=== PATIENT | female | born 1940 | race Caucasian/White ===

== ENCOUNTER 2018-05-21 13:38 | Inpatient (IN) ==
--- NOTE | 2018-05-20 21:11 | Discharge Summary ---
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 Diabetes mellitus complication status: with unspecified complications Qualified Code(s): E11.8 - Type 2 diabetes mellitus with unspecified complications (4) HLD (hyperlipidemia) Priority: Secondary Status: Chronic Qualifiers: Hyperlipidemia type: mixed hyperlipidemia Qualified Code(s): E78.2 - Mixed hyperlipidemia (5) HTN (hypertension) Priority: Secondary Status: Chronic Qualifiers: Hypertension type: essential hypertension Qualified Code(s): I10 - Essential (primary) hypertension (6) History of TIA (transient ischemic attack) Priority: Secondary Status: Chronic - Hospital Course Hospital course: Ms. Stevens is a 78 year old female - Time Spent with Patient Total time spent providing and/or coordinating discharge services: - Discharge Medications Home Medications: Gabapentin [Neurontin] 300 mg PO QAM 01/14/18 [History] Aspirin Enteric Coated [Aspirin EC] 325 mg PO BID #20 tablet. 05/20/18 [Rx] OxyCODONE Immed Rel [Roxicodone 5 MG] 5 mg PO Q6HR PRN 7 Days #28 tablet [Rx] Aspirin Enteric Coated [Aspirin EC] 325 mg PO DAILY 05/21/18 [History] Atorvastatin [Lipitor] 40 mg PO HS 05/21/18 [History] Cholecalciferol (D-3) [Vitamin D] 2,000 unit PO DAILY 05/21/18 [History] Donepezil [Aricept] 10 mg PO HS 05/21/18 [History] Gabapentin [Neurontin] 600 mg PO HS 05/21/18 [History] Lisinopril [Zestril] 20 mg PO DAILY 05/21/18 [History] Metformin HCl [Metformin HCl ER] 1,000 mg PO BID 05/21/18 [History] Montelukast [Singulair] 10 mg PO DAILY 05/21/18 [History] Omeprazole [PriLOSEC] 40 mg PO DAILY 05/21/18 [History] Prevagen 1 tab PO DAILY 05/21/18 [History] Allergies/Adverse Reactions: 3 Allergy/AdvReac Type Severity Reaction Status Date / Time etodolac Allergy See Verified 05/21/18 15:29 Comments Primary care physician: Mumtaz Wong MD Labs on day of discharge: Labs from last 24 hours 05/21/18 13:53 POC Glucose 119 H - Patient Status Disposition: Home Health Service Condition: Good - Discharge Instructions Follow Up With: Mumtaz Wong MD [Primary Care Provider] - Additional Instructions: Discharge Instructions: Total Hip Replacement Please call [facility] ([phone]), your Primary Care Physician, or report to the Emergency Room if you have any of the following symptoms: Nausea, vomiting, fever greater that 101.5, swelling, chest pain, shortness of breath, increased pain/redness/drainage/odor for your incision site, numbness/ tingling, or any other concerning symptoms. ACTIVITY:Weight-bearing as tolerated for 8 weeks with hip dislocation precautions that physical therapy taught you. You may progress as tolerated under the guidance of your physical therapist. You do not need to sleep with a pillow between your legs. You can also seep on the operative side or on your stomach. Incentive Spirometer 10 times an hour. MEDICATIONS: Upon discharge resume your home medications. Take all the medications as prescribed. Take a stool softener if taking narcotic pain medications. Stool softeners are only effective if you drink enough fluids. Drink 6-8 glass of water or fluids a day, unless this is not allowed for another health problem. Despite using stool softeners, if you haven't had a bowel movement in 3 days, please switch to a gentle laxative. Gentle laxatives are sold over the counter. You should have a bowel movement within 24 hours, if not call the office. You will be discharged from the hospital with a prescription for pain medication. You are encouraged to decrease the use of narcotic pain medication as tolerated. Should you require a refill, please call the office. [facility] prescribes narcotic pain medication for only 4-6 weeks after surgery. If you require pain medication beyond this time period, you may be referred to your Primary Care Physician or to the Pain Clinic for further evaluation. Plan ahead for refills on pain medication as many narcotics either need to be picked up at the office or mailed. It is best to call 48-72 hours in advance of needing a prescription refill so you don't run out of medication. To help control the post-operative pain, you may take NSAIDs (Aleve,Advil, Motrin, ibuprofen, naprosyn) or Tylenol as prescribed on the bottle in addition to the pain medication. ANTICOAGULATION (blood thinners): Continue your Aspirin, Lovenox or Coumadin as prescribed to help prevent a blood clot in the leg or in the lungs. As long as your incision remains dry and you tolerate the NSAIDs (Aleve, Advil, Motrin, Ibuprofen, Naprosyn), it is OK to use the NSAIDS while you are taking your anticoagulation medication. Should your incision start to drain, stop the NSAID and contact our office. Common symptoms of blood clot in the legs include: localized pain, swelling, calf tenderness, redness or discoloration of the skin. Blood clot in the lung symptoms include: shortness of breath, rapid pulse, sweating, and chest pain that worsens with deep breathing, coughing up blood, lightheadedness, feelings of anxiety. If you experience any of these symptoms notify your physician immediately, go to the emergency room, or if having trouble breathing, call 911. WOUND CARE: Leave the dressing on for 7 to 10days. You may change the dressing if it is saturated greater than 50%. Do not get the dressing wet at anytime. Wash your hands with antibacterial soap, rinse and dry prior to any wound care. If you have jorge a the visiting nurse or rehab facility can remove the stapes 10-14 days after surgery and place steri-strips across the wound. Leave the steri-strips in place until they fall off on their own. You may let water from the shower run on top of the steri-strips. If you do not have a visiting nurse or rehab facility, you will need to return to the office at 10-14 days for the jorge a to be removed. If you have itching or redness around the dressing call the office. FOLLOW-UP: Please follow up with your surgeon in the orthopedic clinic in 6 weeks from the day of surgery. If you have jorge a that need to be removed, you will need to come back to the office in 10-14 days from the day of surgery. <Siria Keating - Last Filed: 05/23/18 15:41> - NOTES TO OUTPATIENT PROVIDER Notes to Outpatient Provider: PCP follow up: Acute blood loss anemia Date of Encounter: 05/23/18 Time of Encounter: 15:36 - Discharge Diagnosis (1) Status post total hip replacement, right Priority: Primary Status: Acute Comments: Opsite dressing, leave intact until first post-operative visit. If dressing becomes >50% saturated, contact office, remove dressing and place appropriate dressing in its place. Do not allow for dressing to get wet. Zipline/[place] in place, plan to remove at post-operative day #14-16. Total Joint Precautions x 6 weeks Apply cold therapy wrap 3-6x/day for 20 minutes at a time. Encourage ambulation throughout the day Use Incentive spirometer 10x/hour. Elevate affected extremity above heart as tolerated. Brace: Wear hip abductor brace at night x 6 weeks. (2) Arthritis of right hip Priority: Primary Status: Chronic (3) HTN (hypertension) Priority: Secondary Status: Chronic Qualifiers: Hypertension type: essential hypertension Qualified Code(s): I10 - Essential (primary) hypertension (4) HLD (hyperlipidemia) Priority: Secondary Status: Chronic Qualifiers: Hyperlipidemia type: mixed hyperlipidemia Qualified Code(s): E78.2 - Mixed hyperlipidemia (5) DMII (diabetes mellitus, type 2) Priority: Secondary Status: Chronic Qualifiers: Diabetes mellitus retirement insulin use: unspecified retirement insulin use status Diabetes mellitus complication status: with unspecified complications Qualified Code(s): E11.8 - Type 2 diabetes mellitus with unspecified complications (6) History of TIA (transient ischemic attack) Priority: Secondary Status: Chronic (7) Acute blood loss anemia Priority: Secondary Status: Acute Comments: Asympto. - Hospital Course Hospital course: Ms. Stevens is a 78 year old female, status post - Right THR 05/21. Patient had uneventful postoperative course, acute blood loss anemia - asympto. Stable for discharge. Patient seen at bedside, without complaints. A&O x 3 Afebrile, vital signs stable. Ester voided prior to discharge according to her nurse Ling. Vital Signs Temp Pulse Resp BP Pulse Ox 05/23/18 06:32 98.4 F 93 16 119/56 96 05/23/18 03:22 98.2 F 89 17 117/59 95 05/22/18 23:31 98.3 F 95 17 124/64 94 05/22/18 18:42 98.2 F 96 16 121/68 97 Intake and Output 05/22/18 05/23/18 05/23/18 23:59 07:59 15:59 Intake Total 100 / 100 Output Total 600 / 600 Balance -500 / -500 Intake: Oral 100 / 100 Output: Urine 600 / 600 Other: # Voids 1 1 Weight 79.9 kg Blood Glucose* 202 164 159 Patient Weight 05/23/18 23:59 Weight 79.9 kg Labs reviewed. H/H - stable, asymptomatic Abnormal Labs, Last 24 hours 05/23/18 05/23/18 05/23/18 11:31 07:42 01:30 Hgb Hct Sodium 134 L BUN 25 H Est GFR (Non-Af Amer) 54 L Glucose 203 H POC Glucose 159 H 164 H Calcium 8.3 L 05/23/18 05/22/18 05/22/18 01:30 19:56 16:18 Hgb 8.6 L D Hct 27.1 L Sodium BUN Est GFR (Non-Af Amer) Glucose POC Glucose 202 H 216 H Calcium 05/22/18 05/22/18 12:05 07:53 Hgb Hct Sodium BUN Est GFR (Non-Af Amer) Glucose POC Glucose 202 H 255 H Calcium Pain control: adequate Participating in PT. All questions and concerns addressed. Educated on use of incentive spirometer. Encouraged ambulation and proper hydration. Patient educated on post-operative restrictions and post-operative care. Assessment and plan: Continue with postoperative care Discharge plan: Home with , discharge today. She will follow up in [place] with and aakash education printed and given to patient. - Time Spent with Patient Total time spent providing and/or coordinating discharge services: Date of admission: 05/21 Primary care physician: Mumtaz Wong MD Discharging clinician: Siria Keating Anticipated date of discharge: 05/23/18 - Patient Status Functional capacity at discharge: uses cane/walker Overall status at discharge: patient is progressing back to baseline - Diet and Activity Activity: as per physical therapy
--- NOTE | 2018-05-20 22:07 | Physician Discharge Referral ---
<Saúl Carlton - Last Filed: 05/21/18 15:16> - Respiratory Orders Smoking Cessation: Smoking cessation has been advised. For more information, call the [place] Tobacco Quit Line at 7-383-GZEF-NOW. - Transfer Medications Home Medications: Gabapentin [Neurontin] 300 mg PO QAM 01/14/18 [History] Aspirin Enteric Coated [Aspirin EC] 325 mg PO BID #20 tablet. 05/20/18 [Rx] OxyCODONE Immed Rel [Roxicodone 5 MG] 5 mg PO Q6HR PRN 7 Days #28 tablet [Rx] Aspirin Enteric Coated [Aspirin EC] 325 mg PO DAILY 05/21/18 [History] Atorvastatin [Lipitor] 40 mg PO HS 05/21/18 [History] Cholecalciferol (D-3) [Vitamin D] 2,000 unit PO DAILY 05/21/18 [History] Donepezil [Aricept] 10 mg PO HS 05/21/18 [History] Gabapentin [Neurontin] 600 mg PO HS 05/21/18 [History] Lisinopril [Zestril] 20 mg PO DAILY 05/21/18 [History] Metformin HCl [Metformin HCl ER] 1,000 mg PO BID 05/21/18 [History] Montelukast [Singulair] 10 mg PO DAILY 05/21/18 [History] Omeprazole [PriLOSEC] 40 mg PO DAILY 05/21/18 [History] Prevagen 1 tab PO DAILY 05/21/18 [History] Allergies/Adverse Reactions: 3 Allergy/AdvReac Type Severity Reaction Status Date / Time etodolac Allergy See Verified 05/21/18 15:29 Comments Certification: Further, I certify that my clinical findings support that this patient is homebound (i.e. absences from home require considerable and taxing effort and are for medical reasons or jainism services or infrequently or short duration when for other reasons) because: Attestation: My signature below is to certify that this patient is under my care and that I, or nurse practitioner, or a physician's assistant vice president working with me, has a face-to -face encounter with this patient. <Siria Keating - Last Filed: 05/23/18 15:43> Home Health/Hosp Referral Info Transfer to: Home Health Provider in Charge Post Discharge: PCP - Diagnosis (1) Status post total hip replacement, right Priority: Primary Status: Acute (2) Arthritis of right hip Priority: Primary Status: Chronic (3) HTN (hypertension) Status: Chronic (4) HLD (hyperlipidemia) Status: Chronic (5) DMII (diabetes mellitus, type 2) Status: Chronic (6) History of TIA (transient ischemic attack) Status: Chronic - Respiratory Orders None Smoking Cessation: Smoking cessation has been advised. For more information, call the [place] Tobacco Quit Line at 9-826-MEGB-NOW. - Diet/Nutrition Diet/Nutrition Orders: Regular - Activity Activity Orders: Up ad juan, Ambulate, Walker - Services Needed Following services are medically necessary services: Nursing, Home Health Aide, Physical Therapy, Occupational Therapy Home Care Orders: Opsite dressing, leave intact until first post-operative visit. If dressing becomes >50% saturated, contact office, remove dressing and place appropriate dressing in its place. Do not allow for dressing to get wet. Zipline/[place] in place, plan to remove at post-operative day #14-16. Total Joint Precautions x 6 weeks Apply cold therapy wrap 3-6x/day for 20 minutes at a time. Encourage ambulation throughout the day Use Incentive spirometer 10x/hour. Elevate affected extremity above heart as tolerated. Brace: Wear hip abductor brace at night x 6 weeks. Other Treatments: Repeat H/H this week for blood loss anemia. Fax results to [facility]. Certification: Further, I certify that my clinical findings support that this patient is homebound (i.e. absences from home require considerable and taxing effort and are for medical reasons or jainism services or infrequently or short duration when for other reasons) because: Homebound Reason: Post-surgery restriction and or conditions limit ability to leave home Attestation: My signature below is to certify that this patient is under my care and that I, or nurse practitioner, or a physician's assistant vice president working with me, has a face-to -face encounter with this patient.
[2018-05-21] MEDS ORDERED: Ringers Solution, Lactated 1,000 ML IVC SCH ×2 (14:00→19:05)
[2018-05-21] MEDS ORDERED: CeFAZolin Syr 2,000MG/20 ML 2,000 MG/20 ML SYRINGE IVPB ONE (14:00)
[2018-05-21] MEDS ORDERED: Famotidine 20 MG/2 ML VIAL IVP ONE (14:48)
[2018-05-21] MEDS ORDERED: Acetaminophen IV 1,000 MG/100 ML INFUS..BTL IVPB ONE (14:49)
--- NOTE | 2018-05-21 14:51 | Anesthesia Evaluation PreOp ---
Date of Encounter: 05/21/18 Time of Encounter: 14:50 - Past History Planned Operation: Rt THR Cardiac History: HTN, Hyperlipidemia Pulmonary History: Denies Any Significant HX TRACTOR EXPERT History: TIA Other Medical History: Diabetes Type II Anesthesia History: No Prior Anesthetic Complications Alcohol Use: none Drug use: none Medications and Allergies Donepezil 01/14/18 [History] Ergocalciferol (VITAMIN D2) 01/14/18 [History] Gabapentin [Neurontin] 01/14/18 [History] Hydrochlorothiazide 01/14/18 [History] Lisinopril 01/14/18 [History] Prilosec 01/14/18 [History] metFORMIN 01/14/18 [History] Aspirin Enteric Coated [Aspirin EC] 325 mg PO BID #20 tablet. 05/20/18 [Rx] OxyCODONE Immed Rel [Roxicodone 5 MG] 5 mg PO Q6HR PRN 7 Days #28 tablet [Rx] 3 Allergy/AdvReac Type Severity Reaction Status Date / Time etodolac Allergy See Verified 01/14/18 13:20 Comments - Meds/Allergy Pre-op Review Medications Reviewed: Yes Allergies Reviewed: Yes Beta Blockers on Current Med List: No Anesthesia Results - Labs Laboratory Tests 05/16/18 05/16/18 14:04 14:04 Hgb 12.3 Hct 38.1 Plt Count 304 Sodium 133 L Potassium 4.4 BUN 12 Creatinine 0.86 - Imaging EKG: report reviewed (SR poss Atrial Enlargement) Anesthesia Exam O2 Sat Height 1.7 m Height 1.7 m Weight 79.379 kg Weight 79.379 kg O2 Sat by Pulse Oximetry 98 Vital Signs Temp Pulse Resp BP Pulse Ox 98.2 F 99 18 199/94 98 05/21/18 13:58 05/21/18 13:58 05/21/18 13:58 05/21/18 13:58 05/21/18 13:58 Height: 5'7 Weight: 175 lbs NPO (# of Hours): MN Pain Scale: 0 - HEENT Pupil (Motor): Pupils equal, EOMI Mallampati: III Denture Type: Upper: Complete Oral Opening: Less than or equal to 3 - TRACTOR EXPERT LOC: Oriented TRACTOR EXPERT Motor: Normal RUE, Normal LUE, Normal RLE, Normal LLE, Normal Face TRACTOR EXPERT Sensory: Normal: RUE, LUE, RLE, LLE, Face - Cardiac Rhythm: Regular Murmur: None JVD: No Carotid Bruit: No - Pulmonary Breath Sounds: bilateral Clear Respiratory Effort: Symmetrical Anesthesia Assess/Plan ASA Score: 3 (HTN DM TIA) Modified [place] Scale for Level of Consciousness: Cooperative, oriented, and tranquil Anesthetic Plan: General, Regional Monitoring Plan: Standard Monitors Recovery Plan: PACU (Discussed GA, possible Fascia Iliaca Block, agrees to proceed)
[2018-05-21] MEDS ORDERED: *HR* Succinylcholine 200 MG/10 ML VIAL IVP ONE (14:53)
[2018-05-21] MEDS ORDERED: *HR* FentaNYL (PF) 100 MCG/2 ML VIAL ONE ×3 (14:53→17:09)
[2018-05-21] MEDS ORDERED: Ondansetron 4 MG/2 ML VIAL ONE (14:53)
[2018-05-21] MEDS ORDERED: *HR* Propofol 200 MG/20 ML VIAL IVP ONE (14:53)
[2018-05-21] MEDS ORDERED: *HR* Midazolam HCl 2 MG/2 ML VIAL ONE (14:53)
[2018-05-21] MEDS ORDERED: Dexamethasone 4 MG/ML VIAL ONE (14:53)
[2018-05-21] MEDS ORDERED: Lidocaine -MPF 2% 2 ML VIAL ONE (14:54)
[2018-05-21] MEDS ORDERED: Lidocaine -MPF 4% 5 ML AMPUL ONE (14:56)
--- NOTE | 2018-05-21 15:16 | History & Physical Report ---
Date of Encounter: 05/21/18 Time of Encounter: 15:16 24 Hour HP Update - Instructions Instructions: If the History and Physical is less than 30 days old and was completed prior to A.M. admission and or procedure and has NOT been updated on calendar day of procedure please complete this update prior to performing procedure. - Update Patient reports changes in Medical Condition: No Changes in examination, assessment, or condition: No Changes in Medication: No Preop tests/diagnostics Reviewed: Yes Surgery Remains Indicated: Yes Consent for Planned Operative Procedure(s) Verified: Yes - Pre-Operative Checklist Preoperative Checklist Indicated: No Prophylactic Antibiotic Ordered: Yes Is VTE Prophylaxis Indicated?: Yes
--- NOTE | 2018-05-21 17:11 | Orthopedic Operative Note ---
Date of procedure: 05/21/18 Pre-op diagnosis: Right hip arthritis Post-op diagnosis: same Procedure: Procedure: Right Total Hip Replacment robotic-assisted Estimated blood loss: 200 cc Hardware: Metal and polyethylene replacement. [place] DM Cup: 52 cup Femoral size 8 stem Head: 4head with Renee Procedural Notes: Grade 4 arthritic changes femoral head acetabular socket, procedure performed with robotic assistance. Operative leg 5 mm short as compared to nonoperative leg based on preoperative CT Operative procedure: The patient was brought to the operating room and placed on the operating room table. After general anesthesia was administered the patient was placed in the lateral decubitus position with the operative leg up. All pressure points were padded appropriately and the head was stabilized in the neutral position. The operative extremity was prepped and draped in the sterile surgical fashion patient received IV antibiotic prior to skin incision. 3 Steinmann pins were placed in the iliac crest 3 cm proximal to the anterior superior iliac spine this was for the robotic-assisted sensor. This was done through a small 2 cm incision. A standard posterior approach is made to the operative hip, the incision was made through the skin and subcutaneous tissue hemostasis was obtained with Bovie cautery. Using careful sharp dissection the fascia was identified and incised exposing the external rotators. The greater trochanter was marked, and length was measured at this time utilizing robotic assistance. The external rotators were released off the greater trochanter and tagged with # 2 FiberWire suture. The capsule was T'd open and the hip was brought into internal rotation. Patient noted to have grade 4 arthritic changes femoral head. The femoral neck cut was made at the appropriate level roughly 15 mm proximal to the lesser trochanter aced on preoperative templating. An anterior capsulotomy was performed for the anterior retractor. Soft tissues removed from the acetabulum. Patient noted to have grade 4 arthritic changes acetabulum. The acetabulum reference point was confirmed. The acetabulum was then mapped with robotic assistance. Based on the preoperative plan the acetabulum was reamed in one step with a 51 reamer. The 52 acetabulum was impacted with robotic assistance and 39 degrees of abduction and 26 degrees of anteversion. The hip was brought back in to internal rotation and prepared with the box office clerk followed by the canal finder followed by the reaming process to a size 7/ 8 broaching process in 20 degrees anteversion. It was broached up to the appropriate size 8 Trial reduction revealed leg lengths close to normal. The femoral implant was impacted in place in 20 degrees of anteversion. Trial reduction found the hip to be stable with 4 head and Renee. The trials were removed and the real implants were impacted in place. The hip was reduced, patient had robotic confirmed leg length of 3 mm longer than the contralateral side. The hip had excellent stability with forward flexion to 90 degrees adduction of 30 degrees and internal rotation of 60 degrees. The hip had no shuck. The hip sat with an antibacterial solution. It was irrigated out with 2 L of pulse irrigation. The Steinmann pins were removed. The hip was closed by the PA. The deep tissue was irrigated and closed deep with #1 PDS suture superficially with 0 PDS suture and skin was closed with Dermabond and zip tie. The patient was placed in a sterile dressing and abduction pillow. The patient was extubated and transferred to the recovery room in stable condition. Anesthesia: GETA Surgeon: Saúl Carlton Was there an executive administrative assistant present: No Estimated blood loss (cc): 200 Condition: stable Disposition: PACU
[2018-05-21] MEDS ORDERED: Ethanol\\Acetic Acid\\Na Ace\\Ben 1,000 ML IRRIG.SOLN IR ONE (17:32)
[2018-05-21] MEDS: *HR* Labetalol 20 MG/4 ML SYRINGE IVP PRN ×2 (17:50→18:33)
[2018-05-21] MEDS: *HR* HYDROmorphone (PF) 1 MG/ML SYRINGE IVP PRN ×8 (17:58→18:33)
[2018-05-21] MEDS ORDERED: *HR* Enoxaparin 30 MG/0.3 ML SYRINGE SQ SCH (18:00)
--- NOTE | 2018-05-21 18:51 | Anesthesia Evaluation Post Op ---
Date of Encounter: 05/21/18 Time of Encounter: 18:49 - Vital Signs Vital Signs: Vital Signs/O2 Sat, Most Current Temp Pulse Resp BP Pulse Ox 98.6 F 76 16 151/84 96 05/21/18 18:43 05/21/18 18:43 05/21/18 18:43 05/21/18 18:43 05/21/18 18:43 - Lungs Lungs: Clear Ascult./Percussion - Airway Airway: Non-obstructed - Cardiovascular Regular Rate - Mental Status Mental Status: Asleep with brisk response to light stimulation - Pain Pain Scale used: Unable to assess (patient asleep but complains of pain when awake, then goes back to sleep) - Nausea Vomiting Nausea Vomiting: Not Present - Hydration Hydration: NPO, Has not voided - Discharge PostOp Status: Transfer Patient to floor
[2018-05-21] MEDS ORDERED: Temazepam 15 MG CAPSULE PO PRN (19:05)
[2018-05-21] MEDS ORDERED: Naloxone 0.4 MG/ML INJ IVP PRN (19:05)
[2018-05-21] MEDS ORDERED: *HR* OxyCODONE Immed Rel 5 MG TABLET PO PRN (19:05)
[2018-05-21] MEDS ORDERED: traMADol 50 MG TABLET PO PRN (19:05)
[2018-05-21] MEDS ORDERED: Sennosides 8.6 MG TABLET PO PRN (19:05)
[2018-05-21] MEDS ORDERED: MOM Conc 10 ML UD.LIQ PO PRN (19:05)
[2018-05-21] MEDS: Ascorbic Acid 500 MG TABLET PO SCH (21:00)
[2018-05-21] MEDS: Ondansetron 4 MG/2 ML VIAL IVP PRN (21:00)
[2018-05-21] MEDS: *HR* OxyCODONE/APAP 5/325 TABLET PO PRN (22:43)
[2018-05-22 01:54] LABS: Hematocrit 33.8 % (35.3-44.9)
[2018-05-22 02:14] LABS: BUN/Creatinine Ratio 16 (6-26); Blood Urea Nitrogen 14 mg/dL (8-23); Calcium 8.9 mg/dL (8.6-10.3); Carbon Dioxide 24 mEq/L (23-29); Chloride 101 mEq/L (98-107); Glucose 259 mg/dL (70-105); Osmolality,Calculated 291 (280-300); Potassium 4.4 mEq/L (3.5-5.1); Sodium 136 mEq/L (136-145); eGFR For Non-African Americans > 60 (> 60)
[2018-05-22] MEDS: Ondansetron 4 MG/2 ML VIAL IVP PRN (04:38)
[2018-05-22] MEDS: *HR* Enoxaparin 30 MG/0.3 ML SYRINGE SQ SCH ×2 (04:49→18:23)
[2018-05-22] MEDS ORDERED: Dextrose Gel 15 GM/37.5 ML TUBE PO PRN ×2 (06:38)
[2018-05-22] MEDS ORDERED: *HR* Dextrose 50 % in Water (Syg) 50 ML SYRINGE IVP PRN (06:38)
[2018-05-22] MEDS ORDERED: D5% in Water 1,000 ML IVC PRN (06:38)
--- NOTE | 2018-05-22 06:39 | Orthopedics Progress Note ---
Date of Encounter: 05/22/18 Time of Encounter: 06:38 - Assessment and Plan (1) Arthritis of right hip Current Visit: No Status: Chronic (2) Status post total hip replacement, right Current Visit: No Status: Acute (3) DMII (diabetes mellitus, type 2) Current Visit: No Status: Chronic Qualifiers: Diabetes mellitus prison insulin use: unspecified roasterman insulin use status Diabetes mellitus complication status: with unspecified complications Qualified Code(s): E11.8 - Type 2 diabetes mellitus with unspecified complications (4) HLD (hyperlipidemia) Current Visit: No Status: Chronic Qualifiers: Hyperlipidemia type: mixed hyperlipidemia Qualified Code(s): E78.2 - Mixed hyperlipidemia (5) HTN (hypertension) Current Visit: No Status: Chronic Qualifiers: Hypertension type: essential hypertension Qualified Code(s): I10 - Essential (primary) hypertension (6) History of TIA (transient ischemic attack) Current Visit: No Status: Chronic Subjective Interval history: Patient was seen this morning doing well without complaints. Afebrile vital signs stable. Operative extremity: Neurovascularly intact Dressing clean dry and intact Calves nontender Assessment and plan: Continue with postoperative care Hematocrit 33 Objective Vital signs: Vital Signs Temp Pulse Resp BP Pulse Ox 05/22/18 04:12 98.5 F 71 14 137/68 96 05/21/18 23:44 97.7 F 85 14 161/71 93 05/21/18 21:05 98.4 F 76 16 127/88 96 05/21/18 20:05 98.3 F 86 14 157/84 98 05/21/18 19:35 97.9 F 81 16 166/67 98 05/21/18 19:05 98.2 F 70 16 157/76 98 05/21/18 18:43 98.6 F 76 16 151/84 96 05/21/18 18:33 83 16 173/81 97 05/21/18 18:23 86 16 159/75 99 05/21/18 18:13 98.2 F 87 16 165/85 100 05/21/18 18:03 80 16 122/88 100 05/21/18 17:53 76 16 159/80 100 05/21/18 17:43 98.4 F 88 16 202/108 100 05/21/18 15:48 92 18 200/95 95 05/21/18 13:58 98.2 F 99 18 199/94 98 Intake and Output 05/21/18 05/21/18 05/22/18 15:59 23:59 07:59 Intake Total 0 / 0 0 / 0 Output Total 550 / 550 100 / 100 Balance -550 / -550 -100 / -100 Intake: Oral 0 / 0 0 / 0 Output: Urine 300 / 300 100 / 100 Estimated Blood Loss 200 / 200 Gastric Drainage 50 / 50 Other: Weight 79.379 kg 79.8 kg Blood Glucose* 119 218 Patient Weight 05/22/18 23:59 Weight 79.8 kg - Labs CBC & BMP: 05/22/18 00:56 05/22/18 00:56 Labs: Abnormal lab results Hgb 11.0 g/dL (11.5-15.4) L D 05/22/18 00:56 Hct 33.8 % (35.3-44.9) L 05/22/18 00:56 Glucose 259 mg/dL (70-105) H 05/22/18 00:56 POC Glucose 119 mg/dL (70-99) H 05/21/18 13:53 Consult Discharge Plan - Plan Referrals: Mumtaz Wong MD [Primary Care Provider] -
[2018-05-22] MEDS: Insulin LISPRO 300 UNITS/3 ML VIAL SQ SCH ×3 (08:39→18:19)
[2018-05-22] MEDS: Ascorbic Acid 500 MG TABLET PO SCH ×2 (08:39→18:22)
[2018-05-22] MEDS: Multivit/Ca/Min/Fe/FA 1 TAB TABLET PO SCH (08:39)
[2018-05-22] MEDS: *HR* Metformin 500 MG TABLET PO SCH ×2 (11:16→18:22)
[2018-05-22] MEDS: Gabapentin 300 MG CAPSULE PO SCH (11:17)
[2018-05-22] MEDS: Cholecalciferol (D-3) 1,000 UNIT TABLET PO SCH (11:17)
[2018-05-22] MEDS: Lisinopril 20 MG TABLET PO SCH (11:21)
[2018-05-22] MEDS: (Prevagen 1 TAB) PO SCH (11:21)
--- NOTE | 2018-05-22 16:26 | Event Note ---
Date of Encounter: 05/22/18 Time of Encounter: 16:24 PCR - POD#1 - Right THR 05/21 Patient seen at bedside, without complaints. A&O x 3 Afebrile, vital signs stable. Labs reviewed. H/H - stable, asymptomatic Pain control: adequate Participating in PT. All questions and concerns addressed. Educated on use of incentive spirometer. Encouraged ambulation and proper hydration. Patient educated on post-operative restrictions and post-operative care. Assessment and plan: Continue with postoperative care Discharge plan: Home in AM, with HH. Short CBC 05/22/18 05/21/18 Range/Units 00:56 18:09 Hgb 11.0 L D 13.0 (11.5-15.4) g/dL Hct 33.8 L 40.0 (35.3-44.9) % BMP 05/22/18 Range/Units 00:56 Sodium 136 (136-145) mEq/L Potassium 4.4 (3.5-5.1) mEq/L Chloride 101 (98-107) mEq/L Carbon Dioxide 24 (23-29) mEq/L BUN 14 (8-23) mg/dL Creatinine 0.88 (0.60-1.20) mg/dL Glucose 259 H (70-105) mg/dL Calcium 8.9 (8.6-10.3) mg/dL Vital Signs Temp Pulse Resp BP Pulse Ox 05/22/18 14:08 97.8 F 87 16 158/79 96 05/22/18 11:11 98.1 F 82 16 164/73 98 05/22/18 06:50 98.7 F 68 16 134/67 97 05/22/18 04:12 98.5 F 71 14 137/68 96 05/21/18 23:44 97.7 F 85 14 161/71 93 05/21/18 21:05 98.4 F 76 16 127/88 96 05/21/18 20:05 98.3 F 86 14 157/84 98 05/21/18 19:35 97.9 F 81 16 166/67 98 05/21/18 19:05 98.2 F 70 16 157/76 98 05/21/18 18:43 98.6 F 76 16 151/84 96 05/21/18 18:33 83 16 173/81 97 05/21/18 18:23 86 16 159/75 99 10/08/18 18:13 98.2 F 87 16 165/85 100 05/21/18 18:03 80 16 122/88 100 05/21/18 17:53 76 16 159/80 100 05/21/18 17:43 98.4 F 88 16 202/108 100 Intake and Output 05/22/18 05/22/18 05/22/18 07:59 15:59 23:59 Intake Total 100 / 100 480 / 480 Output Total 100 / 100 300 / 300 Balance 0 / 0 180 / 180 Intake: IV Fluids 100 / 100 Ancef 2,000 MG In 0.9 % Sodium 100 / 100 Chloride 100 ML @ 200 mls/hr IVPB Q8HR [facility] Rx#:[id number] Oral 0 / 0 480 / 480 Output: Urine 100 / 100 300 / 300 Other: Meal Lunch Percent of Meal Consumed 95% Weight 79.8 kg Blood Glucose* 255 202 216 Patient Weight 05/22/18 23:59 Weight 79.8 kg
[2018-05-22] MEDS ORDERED: Gabapentin 300 MG CAPSULE PO SCH (21:00)
[2018-05-22] MEDS ORDERED: Insulin LISPRO 300 UNITS/3 ML VIAL SQ SCH (21:00)
[2018-05-23 02:22] LABS: Hematocrit 27.1 % (35.3-44.9)
[2018-05-23 02:30] LABS: Hemoglobin 8.6 g/dL (11.5-15.4)
[2018-05-23 02:46] LABS: BUN/Creatinine Ratio 25 (6-26); Blood Urea Nitrogen 25 mg/dL (8-23); Calcium 8.3 mg/dL (8.6-10.3); Carbon Dioxide 23 mEq/L (23-29); Chloride 101 mEq/L (98-107); Glucose 203 mg/dL (70-105); Osmolality,Calculated 288 (280-300); Potassium 3.9 mEq/L (3.5-5.1); Sodium 134 mEq/L (136-145); eGFR For Non-African Americans 54 (> 60)
[2018-05-23] MEDS: *HR* Enoxaparin 30 MG/0.3 ML SYRINGE SQ SCH (05:12)
--- NOTE | 2018-05-23 06:55 | Orthopedics Progress Note ---
Date of Encounter: 05/23/18 Time of Encounter: 06:54 - Assessment and Plan (1) Arthritis of right hip Current Visit: No Status: Chronic (2) Status post total hip replacement, right Current Visit: No Status: Acute (3) DMII (diabetes mellitus, type 2) Current Visit: No Status: Chronic Qualifiers: Diabetes mellitus half-way insulin use: unspecified joint terminal attack controller insulin use status Diabetes mellitus complication status: with unspecified complications Qualified Code(s): E11.8 - Type 2 diabetes mellitus with unspecified complications (4) HLD (hyperlipidemia) Current Visit: No Status: Chronic Qualifiers: Hyperlipidemia type: mixed hyperlipidemia Qualified Code(s): E78.2 - Mixed hyperlipidemia (5) HTN (hypertension) Current Visit: No Status: Chronic Qualifiers: Hypertension type: essential hypertension Qualified Code(s): I10 - Essential (primary) hypertension (6) History of TIA (transient ischemic attack) Current Visit: No Status: Chronic (7) Acute blood loss anemia Current Visit: Yes Status: Acute Subjective Interval history: Patient was seen this morning doing well without complaints. Afebrile vital signs stable. Operative extremity: Neurovascularly intact Dressing clean dry and intact Calves nontender Assessment and plan: Continue with postoperative care Hematocrit 27 Objective Vital signs: Vital Signs Temp Pulse Resp BP Pulse Ox 05/23/18 03:22 98.2 F 89 17 117/59 95 05/22/18 23:31 98.3 F 95 17 124/64 94 05/22/18 18:42 98.2 F 96 16 121/68 97 05/22/18 14:08 97.8 F 87 16 158/79 96 05/22/18 11:11 98.1 F 82 16 164/73 98 Intake and Output 05/22/18 05/22/18 05/23/18 15:59 23:59 07:59 Intake Total 480 / 480 100 / 100 Output Total 300 / 300 600 / 600 Balance 180 / 180 -500 / -500 Intake: Oral 480 / 480 100 / 100 Output: Urine 300 / 300 600 / 600 Other: Meal Lunch Percent of Meal Consumed 95% # Voids 1 Weight 79.9 kg Blood Glucose* 202 202 Patient Weight 05/23/18 23:59 Weight 79.9 kg - Labs CBC & BMP: 05/23/18 01:30 05/23/18 01:30 Labs: Abnormal lab results Hgb 8.6 g/dL (11.5-15.4) L D 05/23/18 01:30 Hct 27.1 % (35.3-44.9) L 05/23/18 01:30 Sodium 134 mEq/L (136-145) L 05/23/18 01:30 BUN 25 mg/dL (8-23) H 05/23/18 01:30 Est GFR (Non-Af Amer) 54 (> 60) L 05/23/18 01:30 Glucose 203 mg/dL (70-105) H 05/23/18 01:30 POC Glucose 202 mg/dL (70-99) H 05/22/18 19:56 Calcium 8.3 mg/dL (8.6-10.3) L 05/23/18 01:30 Consult Discharge Plan - Plan Referrals: Mumtaz Wong MD [Primary Care Provider] -
[2018-05-23 07:05] VITALS: BP 119/56
[2018-05-23] MEDS: Gabapentin 300 MG CAPSULE PO SCH (07:33)
[2018-05-23] MEDS: Cholecalciferol (D-3) 1,000 UNIT TABLET PO SCH (07:33)
[2018-05-23] MEDS: Lisinopril 20 MG TABLET PO SCH (07:34)
[2018-05-23] MEDS: (Prevagen 1 TAB) PO SCH (07:34)
[2018-05-23] MEDS: Insulin LISPRO 300 UNITS/3 ML VIAL SQ SCH ×2 (07:34→11:36)
[2018-05-23] MEDS: Ascorbic Acid 500 MG TABLET PO SCH (07:34)
[2018-05-23] MEDS: Multivit/Ca/Min/Fe/FA 1 TAB TABLET PO SCH (07:34)
[2018-05-23] MEDS: *HR* Metformin 500 MG TABLET PO SCH (07:34)
[2018-05-23] MEDS: *HR* OxyCODONE/APAP 5/325 TABLET PO PRN (11:18)
== END 2018-05-23 14:10 | disposition home health service (06) | DRG 470 ==
LOC: SAMDAY 13:38 → 3NENU 18:57
PROVIDERS: ADMIT Orthopaedic Surgery; ATTEND Orthopaedic Surgery